=== PATIENT | female | born 1970 | race African-American/Black ===

== ENCOUNTER 2017-10-06 14:15 | Emergency (ER) | payer MEDICAID ==
[~2017-10-06] VITALS: Ht 160 cm; Wt 65.8 kg
[2017-10-06 14:34] VITALS: BP 137/93
--- NOTE | 2017-10-06 14:44 | NUR ---
PER DR MIGUEL PT WHEEL CHAIR ASSISTED TO THE LOBBY
--- NOTE | 2017-10-06 15:49 | NUR ---
PT TAKEN TO OVERFLOW CHAIR 1.
--- NOTE | 2017-10-06 16:06 | NUR ---
PT MOVED TO BED 1.
[2017-10-06] MEDS ORDERED: CLINDAMYCIN 600 MG/4 ML VIAL ONE (16:15)
[2017-10-06] MEDS: CLINDAMYCIN 600 MG in DEXTROSE 5% 50 ML IV ONE (16:36)
--- NOTE | 2017-10-06 16:58 | NUR ---
PATIENT BIB FRIEND WITH C/O SPIDER BITE ON BL LOWER LEG AND RT EAR LOWER LOBE 07/29; SEEN AT [facility] FOR SKIN INFECTION WITH RX BACTRIM NOT TAKING HX OF HEP C, GERD;RX OF OMEPRAZOLE, BACTRIM, IBUPROFEN . DENIES N/V/D; SKIN IS PINK/WARM/DRY; AAOX4 ; LUNGS CLEAR BL; HR EVEN AND REGULAR;PATIENT POSITIONED FOR COMFORT; HOB ELEVATED; BEDRAILS UP X2; BED DOWN. ER MD MADE AWARE OF PT STATUS.
[2017-10-06 17:32] VITALS: BP 127/84
--- NOTE | 2017-10-06 17:32 | NUR ---
Patient discharged with v/s stable. Written and verbal after care instructions given and explained. Patient alert, oriented and verbalized understanding of instructions. Wheel Chair Assisted with to car. All questions addressed prior to discharge. ID band removed. Patient advised to follow up with PMD. Rx of CLINDAMYCIN AND BACTRIM given. Patient educated on indication of medication including possible reaction and side effects. Opportunity to ask questions provided and answered.
[2017-10-06] MEDS ORDERED: ONDANSETRON 4 MG ODT PO ONE (17:35)
== END 2017-10-06 17:32 | disposition home or self-care (01) ==
LOC: MED 14:15
DX: S80.861A Insect bite (nonvenomous), right lower leg, initial encounter (principal); K21.9 Gastro-esophageal reflux disease without esophagitis; W57.XXXA Bitten or stung by nonvenomous insect and other nonvenomous arthropods, initial encounter; Y93.89 Activity, other specified; Y92.89 Other specified places as the place of occurrence of the external cause; Y99.8 Other external cause status
CPT/HCPCS: 96365; 99284; J3490; J7060